=== PATIENT | male | born 1960 | race Caucasian/White ===

== ENCOUNTER 2019-04-25 17:59 | Inpatient (IN) | payer MEDICAID, OTHER ==
[~2019-04-25] VITALS: Ht 180.3 cm; Wt 80.7 kg
[2019-04-25] MEDS ORDERED: ASPIRIN 81MG TABLET PO ONE (19:30)
[2019-04-25 19:57] LABS: HEMATOCRIT. 33.7 % (42.0-52.0); MEAN CORPUSCULAR HEMOGLOBIN 24.5 pg (28.0-32.0); MEAN CORPUSCULAR VOLUME 75.1 fL (80.0-94.0); MEAN PLATELET VOLUME 8.5 fl (7.4-10.4); PLATELET 191 x1000/uL (130-400); RED BLOOD CELL COUNT 4.49 mill/uL (4.7-6.1); RED CELL DISTRIBUTION WIDTH 15.6 % (11.6-14.6)
[2019-04-25 20:06] LABS: CHLORIDE 107 mEq/L (98-107)
[2019-04-25 21:16] LABS: PLATELET ESTIMATE NORMAL
[2019-04-25] MEDS ORDERED: ONDANSETRON HCL 4MG/2ML INJ IV PRN (23:00)
[2019-04-25] MEDS ORDERED: MORPHINE SULFATE 2 MG/ML CPJ (NOT FOR IM USE) IV PRN (23:00)
[2019-04-25] MEDS ORDERED: LORAZEPAM 2MG/ML CPJ IV PRN (23:00)
[2019-04-25] MEDS ORDERED: HYDROCODONE/ACETAMINOPHEN 5/325MG TABLET PO PRN (23:00)
[2019-04-25] MEDS ORDERED: IPRATROPIUM/ALBUTEROL 0.5-3(2.5)MG/3ML NEB NEB PRN (23:00)
[2019-04-26 00:25] VITALS: BP 154/62
[2019-04-26] MEDS: ENOXAPARIN 30MG/0.3ML SYR SUBCUT SCH ×2 (01:45→21:00)
[2019-04-26 04:51] LABS: CHLORIDE 109 mEq/L (98-107)
[2019-04-26 05:01] LABS: CREATINE KINASE 274 IU/L (39-308)
[2019-04-26 05:03] LABS: CREATINE KINASE MB FRACTION 2.6 ng/mL (0.5-3.6)
[2019-04-26 06:23] LABS: BASOPHILS % 1.2 % (0.0-2.0); HEMATOCRIT. 31.4 % (42.0-52.0); HEMOGLOBIN. 10.1 g/dL (14.0-18.0); LYMPHOCYTES % 19.5 % (20.0-50.0); MEAN CORPUSCULAR HEMOGLOBIN 24.4 pg (28.0-32.0); MEAN CORPUSCULAR VOLUME 75.5 fL (80.0-94.0); MEAN PLATELET VOLUME 8.7 fl (7.4-10.4); MONOCYTES % 8.2 % (2.0-8.0); NEUTROPHILS % 61.1 % (40.0-76.0); PLATELET 220 x1000/uL (130-400); RED BLOOD CELL COUNT 4.15 mill/uL (4.7-6.1); RED CELL DISTRIBUTION WIDTH 15.2 % (11.6-14.6)
[2019-04-26 08:00] VITALS: BP 129/75
[2019-04-26] MEDS: THIAMINE HCL 100MG TABLET PO SCH (08:16)
[2019-04-26] MEDS: ASPIRIN 81MG EC TABLET PO SCH (08:16)
[2019-04-26] MEDS: CETIRIZINE 10MG TABLET PO SCH (10:13)
[2019-04-26] MEDS: NITROGLYCERIN 0.4MG TABLET SL SL PRN ×2 (10:13→15:19)
[2019-04-26] MEDS ORDERED: REGADENOSON 0.4 MG/5 ML IV SCH (10:30)
[2019-04-26 12:00] VITALS: BP 128/72
[2019-04-26] MEDS ORDERED: LEVO50TA8 MT (12:04)
[2019-04-26 15:42] LABS: CREATINE KINASE 252 IU/L (39-308); CREATINE KINASE MB FRACTION 2.2 ng/mL (0.5-3.6)
[2019-04-26 16:00] VITALS: BP 131/76
[2019-04-26 20:00] VITALS: BP 111/72
[2019-04-26] MEDS ORDERED: ATORVASTATIN CALCIUM 10MG TABLET PO SCH (21:00)
[2019-04-27 03:43] VITALS: BP 117/66
[2019-04-27 06:24] LABS: BASOPHILS % 1.2 % (0.0-2.0); EOSINOPHILS % 10.2 % (0.0-5.0); HEMATOCRIT. 31.4 % (42.0-52.0); HEMOGLOBIN. 10.3 g/dL (14.0-18.0); LYMPHOCYTES % 19.8 % (20.0-50.0); MEAN CORPUSCULAR HEMOGLOBIN 24.4 pg (28.0-32.0); MEAN CORPUSCULAR VOLUME 74.7 fL (80.0-94.0); MEAN PLATELET VOLUME 8.6 fl (7.4-10.4); MONOCYTES % 8.5 % (2.0-8.0); NEUTROPHILS % 60.3 % (40.0-76.0); PLATELET 206 x1000/uL (130-400); RED CELL DISTRIBUTION WIDTH 15.4 % (11.6-14.6)
[2019-04-27 06:41] LABS: CHLORIDE 108 mEq/L (98-107)
[2019-04-27] MEDS: THIAMINE HCL 100MG TABLET PO SCH (08:42)
[2019-04-27] MEDS: ENOXAPARIN 40MG/0.4ML SYR SUBCUT SCH ×2 (08:42→09:00)
[2019-04-27] MEDS: CETIRIZINE 10MG TABLET PO SCH (08:42)
[2019-04-27] MEDS: ASPIRIN 81MG EC TABLET PO SCH (08:42)
[2019-04-27 10:04] LABS: *AMPHETAMINES SCREEN URINE NEGATIVE (NEGATIVE); *BARBITURATES SCREEN URINE NEGATIVE (NEGATIVE); *BENZODIAZEPINES SCREEN URINE NEGATIVE (NEGATIVE); *COCAINE SCREEN URINE NEGATIVE (NEGATIVE); METHADONE URINE SCREEN NEGATIVE (NEGATIVE)
[2019-04-27 10:05] LABS: CANNABINOID URINE SCREEN NEGATIVE (NEGATIVE); OPIATES URINE SCREEN NEGATIVE (NEGATIVE); PHENCYCLIDINE URINE SCREEN NEGATIVE (NEGATIVE)
== END 2019-04-27 09:15 | disposition home or self-care (01) | DRG 198 ==
LOC: ER 17:59 → 6WST 22:40 → EDBEDREQTM 22:43 → EDBEDREQ 22:43 → ENRESERV 23:29
PROVIDERS: ADMIT Internal Medicine Nephrology; ATTEND Internal Medicine Nephrology
DX: I24.9 Acute ischemic heart disease, unspecified (principal); D64.9 Anemia, unspecified; E03.9 Hypothyroidism, unspecified; E78.1 Pure hyperglyceridemia; F17.200 Nicotine dependence, unspecified, uncomplicated; Y93.A1 Activity, exercise machines primarily for cardiorespiratory conditioning; Z82.49 Family history of ischemic heart disease and other diseases of the circulatory system; R07.9 Chest pain, unspecified
CPT/HCPCS: 36415; 71045; 80048; 80053; 80061; 80305; 82550; 82553; 83880; 84439; 84443; 84484; 85025; 93005; 93306; 99285; J1650; J2270